=== PATIENT | male | born 1955 | race Caucasian/White ===

== ENCOUNTER → 2017-07-12 | Outpatient (CLI) | payer OTHER, MEDICARE ==
[~2017-07-12] MED LIST: CEPH500C PO
--- NOTE | 2017-07-12 14:40 | DIAGNOSTIC IMAGING REPORT ---
LUMBAR SPINE W/O CONTRAST HISTORY: Neuropathy. R SACRAL RADICULOPATHY, LUMBAR DISC DISPLACEMENT TECHNIQUE: Multiplanar multisequence MRI of the lumbar spine was performed without the use of contrast. COMPARISON: None. FINDINGS: For the purpose of the report the L5-S1 disc space will be located on axial image 27 of 36. Moderate to rather significant degenerative disc changes throughout. Mild sclerosis vertebral endplates. No evidence for compression deformity. Several Tarlov or synovial cyst posterior to the L5 S1 S2 segments measuring up to 2.4 cm maximum linear dimension. L1-L2: Mild broad-based disc herniation. Mild impact anterior aspect thecal sac. Minimal narrowing of the neuroforamina bilaterally. L2-L3: Broad-based bulging disc with mild impact anterior thecal sac. Mild multifactorial narrowing of the spinal canal and neural foramina bilaterally. L3-L4: Broad-based disc herniation with significant multifactorial narrowing of the spinal canal. Considerable narrowing of the neuroforamina bilaterally. L4-L5: Broad-based bulging disc with mild/moderate impact anterior thecal sac. Minimal narrowing of the neuroforamina bilaterally. Degenerative change posterior elements. L5-S1: Several Tarlov cysts. No evidence for disc herniation or spinal stenosis. Neural foramina patent bilaterally. IMPRESSION: 1. Considerable degenerative disc changes throughout. 2. Multifocal narrowing of spinal canal at L3-L4 with considerable narrowing of the neuroforamina bilaterally. 3. All additional levels show broad-based bulging disc with varying degrees of narrowing of spinal canal. The above report was generated using voice recognition software. It may contain grammatical, syntax or spelling errors. Electronically signed by: Aaron Ba M.D. 07/12/2017 2:39 PM Dictated Date/Time: 07/12/2017 2:35 PM
== END | disposition home or self-care (01) ==
LOC: C.MRI 13:35
PROVIDERS: ATTEND Physical Medicine & Rehabilitation
DX: M54.18 Radiculopathy, sacral and sacrococcygeal region (principal); M51.26 Other intervertebral disc displacement, lumbar region; M99.73 Connective tissue and disc stenosis of intervertebral foramina of lumbar region

== ENCOUNTER → 2017-08-17 | Day surgery (SDC) | payer OTHER, MEDICARE ==
[2017-08-14 11:07] VITALS: Ht 185.4 cm; Wt 81.8 kg
[~2017-08-17] VITALS: Ht 185.4 cm; Wt 81.8 kg
[~2017-08-17] MED LIST changes: +ASPCH81X PO; -CEPH500C PO; +GABA1CAP5 PO; +IOPAMIDOL INJ 61% 15 ML VIAL ONE; +LIDOCAINE HCL 1% MPF 5 ML VIAL ONE; +LISI-461 PO; +SODIUM CHLORIDE 0.9% INJ 10 ML VIAL ONE
--- NOTE | 2017-08-17 13:01 | History & Physical Bridge - [place] ---
H&P Re-Evaluation Bridge Note: I have examined the patient, reviewed the History & Physical and in the interval since the performance of the History & Physical I have noted the following changes of clinical significance: No changes noted
[2017-08-17 13:24] VITALS: TEMP 36.7
--- NOTE | 2017-08-17 13:29 | Discharge Instructions ---
Discharge Instructions Date of Service Aug 17, 2017. Visit Reason for Visit: Right Sacral Radiculopathy Discharge Discharge Diagnosis / Problem: right leg pain Discharge Goals Goal(s): Decrease discomfort, Improve function Medications Stopped Medications Name(s): ASA- last dose Monday08/12/16 Activity Recommendations Activity Limitations: resume your previous activity Anesthesia . Post Anesthesia Instructions: If you have had General Anesthesia or IV Sedation: * Do not drive today. * Resume driving when surgeon permits. * Do not make important decisions or sign legal documents today. * Call surgeon for: 1. Temperature elevations greater than 101 degrees F. 2. Uncontrollable pain. 3. Excessive bleeding. 4. Persistent nausea and vomiting. 5. Medication intolerance (nausea, vomiting or rash). * For nausea and vomiting use only clear liquids such as: tea, soda, bouillon until nausea subsides, then gradually increase diet as tolerated. * If you have any concerns or questions, call your surgeon's office. If physician is unavailable and it is an emergency, call 911 or go to the nearest emergency room. . Diet Recommendations Recommended Home Diet: resume previous diet Procedures Procedures Performed: Lumbar Epidural Steroid Injection Pending Studies Studies pending at discharge: no Medical Emergencies . Who to Call and When: Medical Emergencies: If at any time you feel your situation is an emergency, please call 911 immediately. . Non-Emergent Contact Non-Emergency issues call your: Specialist . . "Provider Documentation" section prepared by Basilio Sheldon. .
[2017-08-17 13:46] VITALS: BP 129/79; PULSE 75; O2SAT 97
--- NOTE | 2017-08-17 13:56 | OPERATIVE REPORT ---
DATE OF OPERATION: 08/17/2017 PREOPERATIVE DIAGNOSIS: Right L5 radiculopathy secondary to Tarlov cyst. POSTOPERATIVE DIAGNOSIS: Same. PROCEDURE: Right paramedian L5-S1 intralaminar epidural steroid injection under fluoroscopic guidance. SURGEON: Dr. Basilio Sheldon. INDICATIONS: The patient is a 62-year-old white male who is having difficulty with radicular pain despite gabapentin. He presents today for an epidural injection to provide him with right lower extremity radicular pain. PHYSICAL EXAMINATION: Pleasant male seated comfortably. He is nontender to palpation. He has no issues with proximal sensation or weakness. He has distal neuropathy changes of bilateral feet with associated weakness and sensory changes. CONSENT: Verbal and written consent was obtained from the patient. Risks and benefits were reviewed. Risks include but are not limited to epidural abscess, epidural hematoma, allergic reaction, dural puncture. The patient wishes to proceed. PROCEDURE: The patient was taken back to the special procedures room of the [facility] where he was maintained in a prone position. Backside was cleansed with Betadine x3 and a dry sterile dressing was applied. Fluoroscope was used to identify the L5-S1 intralaminar space. Overlying skin on the right side was then anesthetized with 4 mL of lidocaine 1% with a 25 gauge 1.5-inch needle. A 22-gauge 3.5 inch Tuohy needle was then directed down towards the intralaminar space. It was advanced under lateral fluoroscopic guidance and loss of resistance was noted at a depth of 4.5 cm. Isovue 300 contrast was injected in 0.25 mL which showed it to be outside the epidural space. It was advanced then down to a depth of 5 cm, reinjected with Isovue 300 contrast 1 mL noted to be in the epidural space. He then underwent injection after negative aspiration of 40 mg of Depo-Medrol and 4 mL of preservative free sodium chloride. Injection was well tolerated. DISPOSITION: 1. The patient is taken out into the discharge recovery area where he will be discharged home once discharge criteria have been met. 2. Follow up in the [facility] office in 4 weeks' time. I attest to the content of the Intraoperative Record and any orders documented therein. Any exception s are noted below.
== END | disposition home or self-care (01) ==
LOC: X.SURG 12:12
PROVIDERS: ATTEND Physical Medicine & Rehabilitation
DX: M54.16 Radiculopathy, lumbar region (principal); G96.19 Other disorders of meninges, not elsewhere classified

== ENCOUNTER → 2017-12-14 | Day surgery (SDC) | payer OTHER, MEDICARE ==
[2017-11-29 07:45] VITALS: Ht 185.4 cm; Wt 81.8 kg
[~2017-12-14] VITALS: Ht 185.4 cm; Wt 81.8 kg
[~2017-12-14] MED LIST changes: +DICLOFENAC PO; -GABA1CAP5 PO
[2017-12-14 13:49] VITALS: TEMP 37.3
--- NOTE | 2017-12-14 13:50 | [facility] Post Operative Brief Note ---
Immediate Operative Summary Operative Date December 14, 2017. Pre-Operative Diagnosis LUMBAR DISC DISEASE, L5-S1 W/ RIGHT SACRAL RADICULOPATHY. Post-Operative Diagnosis SAME Procedure(s) Performed LUMBAR EPIDURAL STEROID INJECTION Surgeon DR. Tamie RHODES Field Secretary Surgeon(s) None Estimated Blood Loss None Findings Consistent with Post-Op Diagnosis Specimens NA Drains None Anesthesia Type Local Complication(s) none Disposition Disposition:
--- NOTE | 2017-12-14 13:51 | Discharge Instructions ---
Discharge Instructions Date of Service December 14, 2017. Visit Reason for Visit: Radiculopathy, Sacral & Sacrococcygeal Region Discharge Discharge Diagnosis / Problem: right leg pain Discharge Goals Goal(s): Decrease discomfort, Improve function Medications Stopped Medications Name(s): held all blood thinners for 18 days. Activity Recommendations Activity Limitations: resume your previous activity Anesthesia . Post Anesthesia Instructions: If you have had General Anesthesia or IV Sedation: * Do not drive today. * Resume driving when surgeon permits. * Do not make important decisions or sign legal documents today. * Call surgeon for: 1. Temperature elevations greater than 101 degrees F. 2. Uncontrollable pain. 3. Excessive bleeding. 4. Persistent nausea and vomiting. 5. Medication intolerance (nausea, vomiting or rash). * For nausea and vomiting use only clear liquids such as: tea, soda, bouillon until nausea subsides, then gradually increase diet as tolerated. * If you have any concerns or questions, call your surgeon's office. If physician is unavailable and it is an emergency, call 911 or go to the nearest emergency room. . Diet Recommendations Recommended Home Diet: resume previous diet Procedures Procedures Performed: LUMBAR EPIDURAL STEROID INJECTION Pending Studies Studies pending at discharge: no Medical Emergencies . Who to Call and When: Medical Emergencies: If at any time you feel your situation is an emergency, please call 911 immediately. . Non-Emergent Contact Non-Emergency issues call your: Specialist . . "Provider Documentation" section prepared by Basilio Sheldon. .
[2017-12-14 14:07] VITALS: BP 119/70; PULSE 65; O2SAT 97
--- NOTE | 2017-12-14 14:39 | OPERATIVE REPORT ---
DATE OF OPERATION: 12/14/2017 PREOPERATIVE DIAGNOSIS: L5-S1 disk disease with a right sacral radiculopathy Tarlov cyst. POSTOPERATIVE DIAGNOSIS: L5-S1 disk disease with a right sacral radiculopathy Tarlov cyst. PROCEDURE: Right paramedian L5-S1 intralaminar epidural steroid injection under fluoroscopic guidance. INDICATIONS: The patient is a 62-year-old white male who presents today for an epidural injection. He has received these in the past and had improvement following his initial injection; however, the pain is starting to intensify down the leg. PHYSICAL EXAMINATION: Pleasant male, seated comfortably. Paraspinal muscles were palpated and noted be nontender. He had no significant issues with forward flexion or extension. He had no sciatic notch sensitivity. He has distal weakness with the AFOs he had at lower extremities and are utilizing those today. He has decreased subjective sensation of the right S1 dermatomal distribution. CONSENT: Verbal and written consent was obtained from the patient. Risks and benefits were reviewed. The risks include but are not limited to epidural abscess, epidural hematoma, allergic reaction, dural puncture. The patient wishes to proceed. DESCRIPTION OF PROCEDURE: The patient was taken back to the special procedures room of the [facility] where he was maintained in a prone position. Backside was cleansed with Betadine x3 and a dry sterile dressing was applied. Fluoroscope was used to identify the L5-S1 intralaminar space. Overlying skin was anesthetized with 4 mL of lidocaine 1% with a 25 gauge 1.5-inch needle on the right side. A 22 gauge 3-1/2 inch Tuohy needle was then directed down towards the intralaminar space. It was advanced under lateral fluoroscopic guidance. Loss of resistance was noted at a depth of 5 cm. Isovue-300 contrast 1 mL was injected which demonstrated epidural uptake pattern which was more classic on the AP view which was checked for confirmation. He then underwent injection after negative aspiration of 40 mg Depo-Medrol, 4 mL of preservative free sodium chloride. Injection was well tolerated and reproduced a transient proximal radicular sensation down the right leg. DISPOSITION: 1. The patient is taken out into the discharge recovery area where he will be discharged home once discharge criteria are met. 2. Follow up in the [facility] Medicine office in 4 weeks' time. I attest to the content of the Intraoperative Record and any orders documented therein. Any exception s are noted below.
== END | disposition home or self-care (01) ==
LOC: X.SURG 12:33
PROVIDERS: ATTEND Physical Medicine & Rehabilitation
DX: M51.17 Intervertebral disc disorders with radiculopathy, lumbosacral region (principal); G96.19 Other disorders of meninges, not elsewhere classified; Z79.82 Long term (current) use of aspirin; Z79.899 Other long term (current) drug therapy